=== PATIENT | female | born 1935 | race Caucasian/White ===

== ENCOUNTER 2018-01-16 13:38 | Inpatient (IN) | payer MEDICARE, BC ==
[~2018-01-16] VITALS: Ht 160 cm; Wt 59.0 kg
--- NOTE | ~2018-01-16 | CN ---
PATIENT NAME:HILL GIBSON MEDICAL RECORD: [id number] : 33 LOCATION:[id number] ADMIT DATE: 01/16/18 ACCOUNT: [id number] CONSULTING PHYSICIAN: OXANA CANO MD REFERRING PHYSICIAN: MILLIE ALANIS MD DATE OF CONSULTATION: 01/20/2018 IDENTIFYING DATA: The patient is 82 years old and she is admitted to the hospital on a voluntary basis. CHIEF COMPLAINT: Confusion. HISTORY OF PRESENT ILLNESS: The patient has a known history of dementia. She has recently developed a fairly severe urinary tract infection. She is hospitalized and being treated for this. She has had some pretty bizarre and even at times agitated behavior, but that seems to have improved and the recent nursing notes all indicate that she is calm and cooperative. Clearly, she has a dementia and clearly, it is advanced. She has only limited orientation and understanding of her situation. In reviewing the chart, it appears that arrangements are being made for long-term care at a [facility]. ASSESSMENT: Senile dementia of the Alzheimer's type. PLAN: I agree with the patient's need for 24-hour a day care, she certainly requires this. As to the least restrictive environment in which that can be accomplished, I do not have information to make a judgment about that, but it does appear that the [facility] the [facility] where that is going to have it to happen. Regarding her pharmacology, I see that she is taking Ativan 3 mg a day, which is an unusually high dose for someone who is 82. I do not know if this is a longstanding medicine or acutely being used to treat the agitation. She is not agitated now, I would strongly encourage her primary care physician to taper that gradually. I would also recommend the use of a cholinesterase inhibitor. Given her absence of acute and direct aggressive behaviors at this time along with the fact that she has already been placed in a local [facility], I do not think she needs to be hospitalized on the behavioral unit. TRANSINT:[id number] Voice Confirmation ID: [id number] DOCUMENT ID: [id number] OXANA CANO MD at 1304 CC: [id number] DICTATION DATE: 01/20/18 1227 [place] SUPERVISOR: 01/20/18 1259 ADM IN [facility] [address] [place] [address]
[2018-01-16 14:24] LABS: BASOPHILS 0.6 % (0-2); EOSINOPHILS 0.7 % (0-7); HEMATOCRIT 47.4 % (36.0-48.0); HEMOGLOBIN 15.3 g/dL (12-16); IMMATURE GRANULOCYTES 0.3 % (0-5); LYMPHOCYTES 17.3 % (15-50); MCH 30.6 pg (26.0-34.0); MCHC 32.3 g/dL (31.0-37.0); MCV 94.8 fL (80.0-100.0); MEAN PLATELET VOLUME 9.5 fL (7.4-10.4); MONOCYTES 6.7 % (2-11); NEUTROPHILS 74.4 % (40-80); PLATELET COUNT 272 10x3/uL (130-400); RDW 13.4 % (11.5-14.5); WBC 6.9 10x3/uL (4.8-10.8)
[2018-01-16 14:51] LABS: APPEARANCE HAZY (CLEAR); BILIRUBIN NEGATIVE (NEGATIVE); COLOR YELLOW (YELLOW); GLUCOSE NEGATIVE (NEGATIVE); KETONE NEGATIVE (NEGATIVE); NITRITE NEGATIVE (NEGATIVE); PROTEIN NEGATIVE (NEGATIVE); UROBILINOGEN NORMAL (NORMAL)
[2018-01-16 14:52] LABS: BACTERIA MANY /hpf (NONE SEEN); EPITHELIAL CELLS 0-5 /hpf (0-5); RED CELLS - URINE 0-5 /hpf (0-5); WHITE CELLS - URINE >50 /hpf (0-5)
[2018-01-16 14:53] LABS: GRANULAR CAST 0-5 /lpf (NONE SEEN)
[2018-01-16 14:54] LABS: ALBUMIN 3.3 g/dL (3.4-5.0); ANION GAP 12.6 mmol/L (8-16); BILIRUBIN - TOTAL 0.41 mg/dL (0.2-1.3); CALCIUM 9.8 mg/dL (8.5-10.1); CARBON DIOXIDE 30.4 mmol/L (21.0-32.0); CREATININE - SERUM 0.9 mg/dL (0.6-1.3); PROTEIN - SERUM 7.8 g/dL (6.4-8.2)
[2018-01-16] MEDS ORDERED: ATIVAN1 MG PO (19:47)
[2018-01-16] MEDS ORDERED: NORVASC2.5 MG PO (19:47)
[2018-01-16 21:40] VITALS: BP 147/65
[2018-01-16 23:24] VITALS: BP 147/65; BMI 23.0
[2018-01-17 02:38] VITALS: BP 150/61
[2018-01-17 11:30] VITALS: BP 157/58
[2018-01-17 15:30] VITALS: BP 138/60
[2018-01-17 16:32] VITALS: BP 138/60
[2018-01-17 22:17] VITALS: BP 149/59
[2018-01-18 05:03] VITALS: BP 138/56
[2018-01-18 06:03] LABS: BASOPHILS 0.3 % (0-2); EOSINOPHILS 2.7 % (0-7); HEMOGLOBIN 13.9 g/dL (12-16); IMMATURE GRANULOCYTES 0.3 % (0-5); LYMPHOCYTES 19.1 % (15-50); MCH 30.1 pg (26.0-34.0); MCHC 32.3 g/dL (31.0-37.0); MCV 93.1 fL (80.0-100.0); MONOCYTES 11.3 % (2-11); NEUTROPHILS 66.3 % (40-80); PLATELET COUNT 268 10x3/uL (130-400); RBC 4.62 10x6/uL (4.00-5.40); RDW 13.2 % (11.5-14.5); WBC 7.1 10x3/uL (4.8-10.8)
[2018-01-18 06:14] LABS: CALCIUM 9.3 mg/dL (8.5-10.1); CARBON DIOXIDE 25.8 mmol/L (21.0-32.0); CHLORIDE - SERUM 104 mmol/L (98-107); CREATININE - SERUM 0.7 mg/dL (0.6-1.3); POTASSIUM - SERUM 3.5 mmol/L (3.5-5.1); SODIUM 140 mmol/L (136-145); eGFR NON AFRICAN AMERICAN 85 mL/min (90-120)
[2018-01-18 06:18] LABS: CALC OSMOLALITY 277 mosm/kg (275-300); GLUCOSE 84 mg/dL (74-106); UREA NITROGEN 13 mg/dL (7-18)
[2018-01-18 07:02] VITALS: BP 147/61
[2018-01-18 11:09] VITALS: BP 140/56
[2018-01-18 14:16] VITALS: Ht 160 cm; Wt 59.0 kg
[2018-01-18 15:00] VITALS: BP 189/86
[2018-01-18 23:59] VITALS: BP 133/67
[2018-01-19 04:17] VITALS: BP 143/72
[2018-01-19 05:28] LABS: BASOPHILS 0.3 % (0-2); HEMATOCRIT 40.3 % (36.0-48.0); HEMOGLOBIN 13.2 g/dL (12-16); IMMATURE GRANULOCYTES 0.3 % (0-5); MCHC 32.8 g/dL (31.0-37.0); MCV 91.6 fL (80.0-100.0); MEAN PLATELET VOLUME 9.7 fL (7.4-10.4); MONOCYTES 9.8 % (2-11); NEUTROPHILS 68.6 % (40-80); PLATELET COUNT 262 10x3/uL (130-400); WBC 7.4 10x3/uL (4.8-10.8)
[2018-01-19 05:48] LABS: CARBON DIOXIDE 26.6 mmol/L (21.0-32.0); CREATININE - SERUM 0.8 mg/dL (0.6-1.3); POTASSIUM - SERUM 3.6 mmol/L (3.5-5.1)
[2018-01-19 07:00] VITALS: BP 135/60
[2018-01-19 11:04] VITALS: BP 142/58
[2018-01-19 15:15] VITALS: BP 127/74
[2018-01-19 20:00] VITALS: BP 145/58
[2018-01-20] VITALS: BP 116/63
[2018-01-20 04:00] VITALS: BP 112/69
[2018-01-20 06:35] LABS: BASOPHILS 0.3 % (0-2); EOSINOPHILS 2.5 % (0-7); HEMATOCRIT 42.1 % (36.0-48.0); HEMOGLOBIN 13.5 g/dL (12-16); IMMATURE GRANULOCYTES 0.3 % (0-5); LYMPHOCYTES 20.8 % (15-50); MCH 29.6 pg (26.0-34.0); MCHC 32.1 g/dL (31.0-37.0); MCV 92.3 fL (80.0-100.0); NEUTROPHILS 65.1 % (40-80); PLATELET COUNT 288 10x3/uL (130-400); RBC 4.56 10x6/uL (4.00-5.40); RDW 13.3 % (11.5-14.5); WBC 6.7 10x3/uL (4.8-10.8)
[2018-01-20 07:21] LABS: ANION GAP 10.4 mmol/L (8-16); CALCIUM 9.3 mg/dL (8.5-10.1); CARBON DIOXIDE 30.3 mmol/L (21.0-32.0); CREATININE - SERUM 0.8 mg/dL (0.6-1.3); POTASSIUM - SERUM 3.7 mmol/L (3.5-5.1)
[2018-01-20 13:31] VITALS: BP 137/51
[2018-01-20 17:23] VITALS: BP 118/64
[2018-01-20 21:18] VITALS: BP 88/64
[2018-01-21 04:09] VITALS: BP 114/64
[2018-01-21 05:04] LABS: BASOPHILS 0.3 % (0-2); EOSINOPHILS 2.4 % (0-7); HEMATOCRIT 41.8 % (36.0-48.0); HEMOGLOBIN 13.8 g/dL (12-16); IMMATURE GRANULOCYTES 0.5 % (0-5); LYMPHOCYTES 22.2 % (15-50); MCH 30.9 pg (26.0-34.0); MCV 93.7 fL (80.0-100.0); MEAN PLATELET VOLUME 9.8 fL (7.4-10.4); MONOCYTES 9.9 % (2-11); NEUTROPHILS 64.7 % (40-80); PLATELET COUNT 265 10x3/uL (130-400); RBC 4.46 10x6/uL (4.00-5.40); RDW 13.4 % (11.5-14.5); WBC 5.9 10x3/uL (4.8-10.8)
[2018-01-21 05:15] LABS: CALCIUM 9.2 mg/dL (8.5-10.1); CARBON DIOXIDE 30.1 mmol/L (21.0-32.0); CREATININE - SERUM 0.8 mg/dL (0.6-1.3); POTASSIUM - SERUM 4.1 mmol/L (3.5-5.1)
[2018-01-21 08:55] VITALS: BP 117/54
[2018-01-21 11:45] VITALS: BP 120/64
[2018-01-21 15:42] VITALS: BP 118/68
[2018-01-21 20:55] VITALS: BP 116/59
[2018-01-21 23:17] VITALS: BP 118/62
[2018-01-22 06:39] LABS: BASOPHILS 0.4 % (0-2); EOSINOPHILS 3.2 % (0-7); HEMATOCRIT 42.2 % (36.0-48.0); HEMOGLOBIN 13.5 g/dL (12-16); IMMATURE GRANULOCYTES 0.3 % (0-5); MCH 30.1 pg (26.0-34.0); MEAN PLATELET VOLUME 9.9 fL (7.4-10.4); MONOCYTES 9.5 % (2-11); NEUTROPHILS 63.6 % (40-80); PLATELET COUNT 269 10x3/uL (130-400); RBC 4.49 10x6/uL (4.00-5.40); RDW 13.6 % (11.5-14.5); WBC 6.9 10x3/uL (4.8-10.8)
[2018-01-22 06:46] LABS: ANION GAP 9.6 mmol/L (8-16); CALCIUM 9.2 mg/dL (8.5-10.1); CARBON DIOXIDE 32.1 mmol/L (21.0-32.0); CREATININE - SERUM 0.8 mg/dL (0.6-1.3); POTASSIUM - SERUM 3.7 mmol/L (3.5-5.1)
[2018-01-22 09:07] VITALS: BP 142/58
[2018-01-22] MEDS ORDERED: Levaquin PO (10:47)
[2018-01-22 12:36] VITALS: BP 137/64
== END 2018-01-22 15:02 | DRG 689 ==
LOC: D.ER 13:38 → D.MS 17:51
PROVIDERS: Family Medicine; Internal Medicine Nephrology
DX: N39.0 Urinary tract infection, site not specified (principal); G93.41 Metabolic encephalopathy; B96.20 Unspecified Escherichia coli [E. coli] as the cause of diseases classified elsewhere; Z91.81 History of falling; G30.1 Alzheimer's disease with late onset; F02.80 Dementia in other diseases classified elsewhere, unspecified severity, without behavioral disturbance, psychotic disturbance, mood disturbance, and anxiety; I10 Essential (primary) hypertension; E78.5 Hyperlipidemia, unspecified; E03.9 Hypothyroidism, unspecified; K58.9 Irritable bowel syndrome, unspecified; M19.90 Unspecified osteoarthritis, unspecified site; M81.0 Age-related osteoporosis without current pathological fracture; E87.5 Hyperkalemia; Z86.73 Personal history of transient ischemic attack (TIA), and cerebral infarction without residual deficits; Z85.048 Personal history of other malignant neoplasm of rectum, rectosigmoid junction, and anus